=== PATIENT | female | born 2000 | race Caucasian/White ===

== ENCOUNTER 2018-11-15 14:50 | Inpatient (IN) ==
[2018-11-15] MEDS ORDERED: NALBUPHINE HCL 10 MG/ML AMPUL IV ONE (15:13)
[2018-11-15] MEDS: RINGER'S SOLUTION,LACTATED 1,000 ML IV PRN ×3 (15:15→22:17)
[2018-11-15 16:23] LABS: Hematocrit 39.8 % (37.0-47.0); Hemoglobin 12.9 gm/dL (12.5-16.0); Mean Cell Volume 82.9 fl (78-100); Mean Corpuscular Hemoglobin 26.9 pg (27-31); Mean Corpuscular Hgb Conc 32.4 g/dl (32-36); Mean Platelet Volume 11.6 fl (8-12.5); Neutrophil # 7.2 K/mm3 (1.3-6.0); Neutrophil % 70.3 % (42-75.0); Platelet Count 179 K/mm3 (150-450); Red Cell Distribution Width 17.5 % (11.5-14.0); White Blood Count 10.2 K/mm3 (4.0-10.5)
[2018-11-15] MEDS ORDERED: NALBUPHINE HCL 10 MG/ML AMPUL IV PRN (16:36)
[2018-11-15 16:37] LABS: Albumin * 2.4 gm/dl (3.4-5.0); Anion Gap 13.4 mmol/L (6.8-13.8); BUN/Creatinine Ratio 15.4 (9.0-21.6); Bilirubin, Total 0.4 mg/dL (0.0-1.1); Ca. Corrected For Albumin 10.7 mg/dL (8.4-10.2); Calcium * 9.7 mg/dL (7.9-10.9); Carbon Dioxide 25.3 mmol/L (24-32.6); Potassium 3.7 mmol/L (3.4-4.6); Total Protein 6.3 gm/dL (6.2-8.2)
[2018-11-15 16:49] LABS: Random Urine Total Protein 13.1 mg/dL (0-12)
[2018-11-15] MEDS: OXYTOCIN/DEXTROSE 5%-WATER 30 UNITS/500 ML BAG IV ONE (16:58)
[2018-11-15] MEDS ORDERED: ONDANSETRON HCL/PF 2 MG/ML VIAL IV PRN (19:14)
[2018-11-15] MEDS ORDERED: NALOXONE HCL 1 MG/1 ML SYRG IV PRN (19:14)
[2018-11-15] MEDS ORDERED: fentaNYL CITRATE/PF 50 MCG/ML AMPUL IT SCH (19:15)
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
--- NOTE | 2018-11-15 20:57 | ANES ---
Post Anesthesia Assessment - Vital Signs Vitals: Last Vital Signs Temp 36.2 C 11/15/18 15:00 Pulse 93 11/15/18 15:00 Resp 22 H 11/15/18 15:00 BP 132/79 11/15/18 15:00 Pulse Ox 96 11/15/18 15:00 Airway Patency: Normal - Mental Status Level Of Consciousness: Awake - Pain Level Pain Score: 4 - N/V Assessment Nausea/Vomiting Presence: None Dehydration:: No
--- NOTE | 2018-11-15 20:57 | ANES ---
Post Anesthesia Discharge - Transfer of Care Transfer of Care handoff given to nurse: Yes - Anesthesia Post Op Note Anesthesia Post Op Note: Care transferred to OB RN
--- NOTE | 2018-11-15 20:58 | ANES ---
Anesthesia Procedure Note Procedure Note: ANESTHESIA PROCEDURE NOTE Date of Procedure: 11/15/2018 Time of procedure: 2019. Performed by: Scott Hernández CRNA Staff Occupational Therapist: None. Preprocedure diagnosis: Active labor. Post procedure diagnosis: Same. Procedure: Insertion of labor epidural. Indications: The patient is a 18-year-old prima para female in active labor requesting labor epidural for pain management. Findings: See below. Details of the procedure: The patient was placed in a sitting position. Back was prepped with DuraPrep. Patient was then draped in a sterile fashion. Lidocaine 1% was infiltrated to the skin and subcutaneous tissues at the level of the L3 4 interspace. The epidural space was identified using a 18-gauge Tuohy needle with [id number] technique. Epidural catheter was inserted without difficulty. Negative test dose was elicited using 5 mL of 1.5% preservative- free lidocaine plus epinephrine 1 200,000. The epidural catheter was then taped and secured in place. EBL: Minimal. Fluids: N/A. Specimen: N/A. Post procedure condition: The patient tolerated the procedure well. No complications were noted. Thank you for this consultation. Corado CRNA
[2018-11-15] MEDS: BUPIVACAINE HCL/0.9 % NACL/PF 250 ML EP PRN (22:38)
[2018-11-16] MEDS: RINGER'S SOLUTION,LACTATED 1,000 ML IV PRN (06:47)
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
[2018-11-16] MEDS: OXYTOCIN/DEXTROSE 5%-WATER 30 UNITS/500 ML BAG IV ONE (18:27)
[2018-11-16] MEDS: BUPIVACAINE HCL/0.9 % NACL/PF 250 ML EP PRN (18:43)
[2018-11-17] MEDS ORDERED: PENICILLIN G POTASSIUM 5 MILLIONUNT in DEXTROSE 5 % IN WATER 100 ML IV ONE ×2 (04:45)
[2018-11-17 08:08] VITALS: BP 100/54
[2018-11-17] MEDS ORDERED: PENICILLIN G POTASSIUM 2.5 MILLIONUNT in DEXTROSE 5 % IN WATER 100 ML IV SCH ×2 (08:45)
[2018-11-17] MEDS ORDERED: ceFAZolin SODIUM 1 GM VIAL IV PRN (09:46)
[2018-11-17] MEDS ORDERED: IBUPROFEN 800 MG TABLET PO PRN (10:01)
[2018-11-17] MEDS ORDERED: ONDANSETRON HCL/PF 2 MG/ML VIAL IV PRN (10:01)
[2018-11-17] MEDS ORDERED: SENNOSIDES 8.6 MG TABLET PO PRN (10:01)
[2018-11-17] MEDS ORDERED: SIMETHICONE 80 MG TAB.CHEW PO PRN (10:01)
[2018-11-17] MEDS ORDERED: KETOROLAC TROMETHAMINE 30 MG/ML VIAL IV PRN (10:01)
[2018-11-17] MEDS ORDERED: oxyCODONE HCL/ACETAMINOPHEN 1 TAB TABLET PO PRN ×2 (10:01)
[2018-11-17] MEDS ORDERED: diphenhydrAMINE HCL 25 MG CAPSULE PO PRN (10:01)
[2018-11-17] MEDS ORDERED: BISACODYL 10 MG SUPP.RECT RC PRN (10:01)
--- NOTE | 2018-11-17 10:01 | PN ---
Progess Note - Interim Date: 11/17/18 Time: 09:56 Narrative: 11/17/18 09:56 The patient made slow progress overnight but was making progress nonetheless. She was reassessed and had significant increase in swelling of the cervix and her cervical exam was now 3 cm whereas prior she was 8-9 cm dilated. FHT is cat 1 The patient received one dose of PCN due to PROM for greater than 24 hours Proceed with routine delivery for arrest of dilation. All risks, benefits, and alternatives of the procedure were explained to the patient and the patient consented to the procedure. The patient asked where her incision would be made and I pointed that out to her. Ancef 3 grams IV for antibiotic prophylaxis
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
[2018-11-17] MEDS ORDERED: OXYTOCIN 20 UNITS in RINGER'S SOLUTION,LACTATED 1,000 ML IV ONE (10:18)
[2018-11-17] MEDS ORDERED: ceFAZolin SODIUM 3 GM in DEXTROSE 5 % IN WATER 100 ML IV ONE ×2 (11:00)
[2018-11-17] MEDS ORDERED: OXYTOCIN 10 UNITS/ML SYRG IM ONE (11:42)
--- NOTE | 2018-11-17 11:56 | OR ---
Operative Report - Dictated Report Narrative: Date of delivery: 11/17/2018 Time of delivery: 08 Gender: male APGARS: 6/9 weight: 3867 grams Preoperative diagnosis: IUP @ 37w 4d, arrest of dilation, tonic clonic seizure x2 Postoperative diagnosis: IUP @ 37w 4d, arrest of dilation, OP presentation, tonic clonic seizure x2 likely secondary to eclampsia Procedure: Primary delivery Surgeon: Dr. Palumbo Anesthesia: Epidural Anesthesiologist: Brett Hess CRNA Description of the procedure: The patient was taken to the operating room for a routine delivery. She had a labor epidural in place. The patient had only one IV in place that was running IVF. Attempts were made to obtain a second IV to administer the Ancef. Attempts at a second IV placement were unsuccessful. The patient had a large amount of bilious emesis. She then began having a tonic clonic seizure and since there were no IVs anesthesia was breathing for the patient. I asked anesthesia when I could begin my procedure and anesthesia recommended to begin immediately given seizure. A Pfannestiel skin incision was made at 0842. The incision was carried through the subcutaneous tissue. The fascia was incised in the midline and from the rectus muscles bluntly. The peritoneum was entered bluntly. A small rinku unt of fluid was noted in the abdominal cavity. A large Jabier retractor was placed. The uterus was incised in a lower transverse fashion. The infant was noted to be in the occiput posterior presentation. A large amount of caput was noted. The shoulders delivered without difficulty as was the rest of the infant. The cord was clamped and cut and the infant was immediately handed off to the attending pediatric staff. The placenta was delivered by expression. The uterus was cleared of all clots and debris. The uterine incision was closed in a running locking fashion using 0-vicryl. Hemostasis was assured. Further hemostasis was obtained with electrocautery of both the uterine incision as well as the bladder peritoneum. The Jabier retractor was removed from the abdomen The fascia was closed with 1-0 vicryl. The subcutaneous tissue was closed with 2-0 vicryl to close the space. The skin was closed with 3-0 monocryl on a Hi needle. Chunchula lucas was placed over the incision and a pressure dressing was applied. After the procedure was completed the patient had a second seizure and at this point she was intubated. Increased bleeding was noted from fundal massage. A decision had been made not to give IV pitocin due to concerns for her stability. I did a manual uterine exploration and about 5 mL of clot was removed. The fundus was firm. At this point 10 units of pitocin IM were given. I entertained the thought of starting magnesium sulfate because she had a systolic blood pressure of 170 and a headache prior to the onset of the seizure. However, given that it required 6 L of oxygen to maintain her saturations I was concerned with fluid overload as well as aspiration pneumonia given the amount of emesis prior to the procedure and thus initially I did not order magnesium until [facility] requested the patient to be given a 4 gram bolus of magnesium prior to transfer. At this point the patient's urine protein to creatinine ratio results were available and the protein was 1108 grams likely consistent with an eclamptic seizure. 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 All sponge, lap, and needle counts were correct. The patient tolerated the procedure. Due to her critical course during and after she was air flown to [place] to the Intensive Care Unit. EBL: 600 mL Complications: none Specimen: placenta
[2018-11-17 12:17] LABS: Random Urine Total Protein 114.5 mg/dL (0-12)
[2018-11-17] MEDS ORDERED: MAGNESIUM SULFATE 4 MEQ/ML VIAL IV ONE (12:18)
[2018-11-17] MEDS ORDERED: WATER IV ONE ×2 (12:30)
[2018-11-17] MEDS ORDERED: MAGNESIUM SULFATE IV ONE ×2 (12:30)
[2018-11-17] MEDS ORDERED: WATER FOR INJECTION STERILE IV ONE ×2 (12:30)
--- NOTE | 2018-11-17 13:14 | ANES ---
Post Anesthesia Discharge - Transfer of Care Transfer of Care handoff given to nurse: Yes - Discharge from PACU Discharge from PACU when meets criteria: Yes - Anesthesia Post Op Note Anesthesia Post Op Note: Blood pressure eventually treated to achieve 120s systolic. Heart rate treated to eventually achieve a rate consistently below 110. Continues to have pink frothy sputum suctioned from endotracheal intermittently. Saturations have been in the low 90s. Patient transported with paramedics to helicopter.
--- NOTE | 2018-11-17 13:15 | ANES ---
Post Anesthesia Assessment - Vital Signs Vitals: Last Vital Signs Temp 37.0 C 11/17/18 08:06 Pulse 71 11/17/18 08:06 Resp 16 11/17/18 08:06 BP 100/54 11/17/18 08:06 Pulse Ox 99 11/17/18 08:06 Airway Patency: Maintainable - #7 endotracheal tube at 22 cm to teeth secured with commercial airway/bite block. - Pain Level Pain Score: 0 - unable to adequately assess. Paralyzed and sedated. - N/V Assessment Nausea/Vomiting Presence: None Dehydration:: No
[2018-11-17] MEDS ORDERED: DOCUSATE SODIUM 100 MG CAPSULE PO SCH (21:00)
--- NOTE | 2018-11-20 08:16 | DS ---
Transfer Discharge Summary - Diagnosis(s)/Problems (1) Eclampsia affecting Problem: Acute (2) GDM, class A2 Problem: Acute (3) Seizure disorder in Problem: Acute (4) Seizure grand mal Problem: Acute (5) Anxiety and depression Problem: Chronic (6) Bipolar disease during Problem: Chronic (7) Morbid obesity Problem: Chronic - Course Description of Stay: The patient presented with suspected rupture of membranes. She then had cervical change from 3cm to 4cm. She had a nitrazine done from her clothes after she reported a big gush of fluid that had some streaks of blue. At this point she had bleeding from her cervical check and thus a nitrazine could not be repeated. In addition, membranes were not palpable on examination. Given that she was term a decision was made to augment labor with pitocin due to suspected rupture of membranes. A single SBP of 90 was noted and thus pre-eclampsia labs were ordered and all were normal. I reassessed the patient the morning after admission and at this time a bag of fluid was palpated very posterior to the head and I ruptured her membranes for augmentation of labor. She had a slow labor progress and the following morning her cervix became very swollen with regression in her cervical exam. At this point a decision was made to proceed with a routine delivery for arrest of dilation. In the operating room the patient had a seizure prior to delivery. At this point an emergent delivery was performed. The patient had a second seizure after delivery. Air evac was called and the patient was transferred to [place] for a higher level of care. A 4 gram bolus of magnesium was given prior to transfer per the request of the receiving team. Procedures Performed: see notes below Procedures: Primary delivery - Medications Medications: Active Medications Discontinued Medications Lactated Ringer's (Lactated Ringers) 1,000 mls @ 999 mls/hr IV .Q1H1M PRN PRN Reason: HYDRATION Stop: 12/15/18 15:12 Last Admin: 11/15/18 22:17 Dose: 999 mls/hr Documented by: Lactated Ringer's (Lactated Ringers) 1,000 mls @ 125 mls/hr IV .Q8H PRN PRN Reason: HYDRATION Stop: 12/15/18 16:37 Last Infusion: 11/17/18 13:06 Dose: 125 mls/hr Documented by: Oxytocin/Dextrose (Pitocin 30 Units/D5w 500 Ml) 30 units in 500 mls @ 2 mls/hr IV PRN ONE; Protocol Stop: 11/26/18 02:35 Last Admin: 11/16/18 18:27 Dose: 22 mls/hr Documented by: Bupivacaine HCl/Sodium Chloride (Bupivacaine 0.125% In Ns 0.9% Cassette) 250 mls @ 0 mls/hr EP Q24H PRN; Protocol PRN Reason: LABOR PAIN Stop: 12/15/18 19:15 Last Admin: 11/16/18 18:43 Dose: 10 mls/hr Documented by: Penicillin G Potassium 5 (millionunt/ Dextrose/Water) 100 mls @ 200 mls/hr IV ONCE ONE; Protocol Stop: 11/17/18 05:14 Last Admin: 11/17/18 05:23 Dose: 200 mls/hr Documented by: Penicillin G Potassium 2.5 (millionunt/ Dextrose/Water) 100 mls @ 200 mls/hr IV Q4H MATTHEW; Protocol Stop: 12/17/18 09:15 Last Admin: 11/17/18 10:55 Dose: 200 mls/hr Documented by: Cefazolin Sodium 3 gm/ (Dextrose/Water) 100 mls @ 200 mls/hr IV PREOP ONE Stop: 11/17/18 11:29 Last Admin: 11/17/18 10:55 Dose: 200 mls/hr Documented by: Magnesium Sulfate 50 ml/ (Sterile Water) 50 mls @ 100 mls/hr IV ONCE ONE Stop: 11/17/18 12:59 Last Admin: 11/17/18 12:26 Dose: 100 mls/hr Documented by: Nalbuphine HCl (Nubain) 5 mg IV ONCE ONE Stop: 11/15/18 15:14 Last Admin: 11/17/18 08:35 Dose: Not Given Documented by: Oxytocin (Pitocin) 10 units IM ONCE ONE Stop: 11/17/18 11:43 Last Admin: 11/17/18 11:42 Dose: 10 units Documented by: - Disposition Disposition: Short Term Hospital Inpatient Condition: Critical
== END 2018-11-17 12:30 | disposition short-term general hospital (02) | DRG 786 ==
LOC: OBCLINIC 14:50 → OB 16:25
PROVIDERS: ADMIT Obstetrics & Gynecology; ATTEND Obstetrics & Gynecology
CPT/HCPCS: 36415; 59025; 80053; 82570; 84155; 84156; 85025; 87086; 88307